=== PATIENT | female | born 1990 | race Caucasian/White ===

== ENCOUNTER → 2018-04-06 10:44 | Outpatient (CLI) | payer OTHER, SELFPAY ==
[2018-04-06 13:47] LABS: Glucose Tol Interpretation INTERPRETATION
[2018-04-06 14:19] LABS: Glucose Fasting 75 mg/dL (70-100)
[2018-04-06 14:19] LABS: Glucose 2 Hour 101 mg/dL (70-140)
[2018-04-06 14:20] LABS: Glucose 1 Hour 148 mg/dL (70-170)
[2018-04-06 14:33] LABS: Prolactin 7.2 ng/mL (3.0-18.6)
[2018-04-06 14:47] LABS: TSH w/ Reflex to FT4 1.51 uIU/mL (0.47-4.68)
[2018-04-09 15:02] LABS: Insulin Level Total 21.2 uIU/mL (2.0-19.6)
[2018-04-09 18:27] LABS: Testosterone Free 9.1 pg/mL (0.1-6.4); Testosterone Total 53 ng/dL (2-45)
[2018-04-14 11:51] LABS: Specimen 2 265.9 uIU/mL; Specimen 3 278.7 uIU/mL; Specimen 4 297.4 uIU/mL
== END ==
PROVIDERS: Visit Provider Specialist
DX: L68.0 Hirsutism (principal); N91.2 Amenorrhea, unspecified
CPT/HCPCS: 36415; 82951; 82952; 83525; 84146; 84402; 84403; 84443